=== PATIENT | female | born 1990 | race Hispanic/Latino ===

== ENCOUNTER 2024-12-08 10:02 | Inpatient (IN) | payer BC ==
[2024-12-08] MEDS ORDERED: Morphine 4 MG/ML VIAL ONE (10:17)
[2024-12-08] MEDS ORDERED: Ondansetron PF 4 MG/2 ML Vial ONE ×2 (10:17→11:42)
[2024-12-08 10:27] LABS: Pregnancy Test - Urine (BHCG) Negative (Negative); Pregu Control Background? CLEAR/WHITE (CLR/WHITE); Pregu Control Bar Appear? YES (CONTROL BAR)
[2024-12-08 10:34] LABS: Bacteria/HPF None Seen HPF (None Seen); Bilirubin Negative (Negative); Blood, Urine 3+ (Negative); CAUTI Indications for Culture Dysuria,urgency,freq; Clarity Turbid (Clear); Glucose, Urine (Dipstick) Normal (Negative); Ketone, Urine Negative (Negative); Leukocyte Negative Leu/uL (Negative); Nitrite Negative (Negative); Protein, Urine (Dipstick) 20 mg/dL (Neg-Trace); RBC/HPF 21-50 HPF (0-3); Specific Gravity, Urine 1.015 (1.002-1.036); Squamous Epithelial 0-3 HPF (0-3); Urobilinogen Normal mg/dL (Less than 2); WBC/HPF 0-3 HPF (0-3)
[2024-12-08 10:35] LABS: Urine Culture Reflex No No
[2024-12-08 10:36] LABS: #Basophils 0.08 10x3/uL (0.0-0.2); %Basophils 0.5 % (0.0-1.0); %Eosinophils 1.8 % (0.0-10.0); %Lymphocytes 53.3 % (21.0-51.0); %Monocytes 5.8 % (0.0-10.0); Hematocrit 38.2 % (36.0-47.0); Hemoglobin 13.1 g/dL (12.0-16.0); Mean Corpuscular HGB CONC 34.3 g/dL (32.0-36.0); Mean Corpuscular Hemoglobin 28.9 pg (27.0-31.0); Mean Corpuscular Volume 84.1 fL (78.0-98.0); Mean Platelet Volume 9.4 fL (7.4-10.4); Platelet Count 392 10x3/uL (130-400); RBC Distribution Width 13.1 % (11.5-14.5); Red Blood Cell (RBC) Count 4.54 mill/uL (4.20-5.40)
[2024-12-08 10:54] LABS: ALT (SGPT) 12 U/L (Less than 34); AST (SGOT) 26 U/L (11-34); Albumin 4.3 g/dL (3.1-4.5); Alkaline Phosphatase 58 U/L (40-110); Anion Gap 18 mmol/L (10-20); BUN (Urea Nitrogen) 16 mg/dL (7.0-18.7); Bilirubin, Total 0.6 mg/dL (0.3-1.2); Calc. Creatinine Clearance 0 mL/min (70-130); Calcium 9.7 mg/dL (7.8-10.44); Carbon Dioxide 19 mmol/L (22-29); Chloride 106 mmol/L (98-107); Estimated GFR 95; Globulin 3.6 g/dL (2.4-3.5); Glucose 147 mg/dL (70-105); Lipase 18 U/L (8-78); Potassium 3.2 mmol/L (3.5-5.1); Protein, Total 7.9 g/dL (6.0-8.3); Sodium 140 mmol/L (136-145)
[2024-12-08] MEDS ORDERED: HYDROmorphone 0.5 MG/0.5 ML SYRINGE ONE ×2 (11:08→11:12)
[2024-12-08] MEDS ORDERED: Potassium Chloride 20 MEQ (100 mL) BAG ONE (11:09)
[2024-12-08] MEDS ORDERED: Promethazine HCl 25 MG/ML VIAL ONE (11:09)
[2024-12-08 11:26] LABS: Magnesium 2.2 mg/dL (1.6-2.6)
[2024-12-08] MEDS ORDERED: Rocuronium Bromide 10 MG/ML (10ML VIAL) ONE (11:42)
[2024-12-08] MEDS ORDERED: Lidocaine 2% PF 5 ML VIAL ONE (11:42)
[2024-12-08] MEDS ORDERED: Dexamethasone 20 MG/5 ML VIAL ONE (11:42)
[2024-12-08] MEDS ORDERED: PROPOFOL 20 ML ONE (11:42)
[2024-12-08] MEDS ORDERED: Midazolam HCl 2 mg/2 ml Vial ONE (11:42)
[2024-12-08] MEDS ORDERED: fentaNYL PF 100 MCG/2 ML SYRINGE ONE (11:42)
[2024-12-08] MEDS ORDERED: Ondansetron PF 4 MG/2 ML Vial IVP PRN (11:44)
[2024-12-08] MEDS ORDERED: Ondansetron ODT 4 MG TAB PO PRN (11:44)
[2024-12-08] MEDS ORDERED: Acetaminophen 650 MG Suppository PR PRN (11:44)
[2024-12-08] MEDS ORDERED: Electrolyte Replacement Protocol 1 EACH FS SCH (11:45)
[2024-12-08] MEDS ORDERED: EPINEPHrine 1 MG/ML VIAL ONE (12:16)
[2024-12-08] MEDS ORDERED: Bupivacaine 0.25% HCL 30 ML VIAL ONE (12:16)
[2024-12-08] MEDS ORDERED: CEFAZOLIN 2 GM VIAL ONE (12:39)
[2024-12-08] MEDS ORDERED: Lidocaine 2% 6 ML (Jelly) SYR ONE (12:54)
[2024-12-08] MEDS ORDERED: SUCCINYLCHOLINE/SOD CL,ISO/PF 200 MG/10 ML SYRINGE FS ONE (12:57)
[2024-12-08] MEDS ORDERED: ePHEDrine/0.9% NaCl/PF SYRINGE 50 mg/10 ml ONE (13:06)
[2024-12-08] MEDS ORDERED: Glycopyrrolate 0.2 MG/ML 5 ML SYRINGE ONE (14:30)
[2024-12-08] MEDS ORDERED: SUGAMMADEX SODIUM 200 MG/2 ML VIAL ONE (14:31)
[2024-12-08] MEDS ORDERED: Iopamidol-370 76% 500 ML MDV (1 ML CHARGE) ONE (15:16)
[2024-12-08] MEDS ORDERED: fentaNYL 50 mcg/mL 1 mL Vial ONE (15:23)
[2024-12-08] MEDS: NS 0.9% w/ 40 MEQ KCL 1,000 ML IV SCH (15:33)
[2024-12-08 17:15] VITALS: BMI 31.5
[2024-12-08 17:22] LABS: Lactic Acid 2.61 mmol/L (0.50-2.20)
[2024-12-08] MEDS: Lactated Ringer's 1,000 ML IV SCH (18:43)
[2024-12-08] MEDS: Morphine 2 MG/ML VIAL SLOW IVP PRN (18:44)
[2024-12-08] MEDS: traMADol HCl 50 MG TAB PO PRN (20:27)
[2024-12-09 06:52] LABS: #Basophils Less than 0.03 10x3/uL (0.0-0.2); #Eosinophils Less than 0.03 10x3/uL (0.0-0.7); %Basophils 0.2 % (0.0-1.0); %Eosinophils 0.1 % (0.0-10.0); %Lymphocytes 15.1 % (21.0-51.0); %Monocytes 8.4 % (0.0-10.0); %Neutrophils 75.8 % (42.0-75.0); Hematocrit 35.3 % (36.0-47.0); Hemoglobin 11.7 g/dL (12.0-16.0); Mean Corpuscular HGB CONC 33.1 g/dL (32.0-36.0); Mean Corpuscular Hemoglobin 28.5 pg (27.0-31.0); Mean Corpuscular Volume 85.9 fL (78.0-98.0); Platelet Count 299 10x3/uL (130-400); RBC Distribution Width 13.3 % (11.5-14.5); Red Blood Cell (RBC) Count 4.11 mill/uL (4.20-5.40)
[2024-12-09 07:20] LABS: Anion Gap 12 mmol/L (10-20); BUN (Urea Nitrogen) 8 mg/dL (7.0-18.7); Calc. Creatinine Clearance 158 mL/min (70-130); Calcium 8.3 mg/dL (7.8-10.44); Carbon Dioxide 22 mmol/L (22-29); Chloride 107 mmol/L (98-107); Estimated GFR 123; Glucose 109 mg/dL (70-105); Potassium 4.1 mmol/L (3.5-5.1); Sodium 137 mmol/L (136-145)
[2024-12-09] MEDS: Enoxaparin 30 MG (0.3 mL) SYRINGE SC SCH (21:14)
[2024-12-10 08:42] LABS: #Basophils 0.03 10x3/uL (0.0-0.2); %Basophils 0.3 % (0.0-1.0); %Eosinophils 1.1 % (0.0-10.0); %Lymphocytes 27.6 % (21.0-51.0); %Monocytes 6.4 % (0.0-10.0); %Neutrophils 64.2 % (42.0-75.0); Hematocrit 37.6 % (36.0-47.0); Mean Corpuscular HGB CONC 31.9 g/dL (32.0-36.0); Mean Corpuscular Hemoglobin 28.6 pg (27.0-31.0); Mean Corpuscular Volume 89.5 fL (78.0-98.0); Mean Platelet Volume 9.4 fL (7.4-10.4); Platelet Count 281 10x3/uL (130-400); RBC Distribution Width 13.3 % (11.5-14.5)
[2024-12-10] MEDS: Acetaminophen 325 MG TAB PO PRN (16:41)
[2024-12-11 09:07] VITALS: BP 116/76; TEMP 97.8
== END 2024-12-11 12:05 | disposition home or self-care (01) | DRG 331 ==
LOC: ERS 10:02 → SDC 12:30 → SURG A 16:23
PROVIDERS: ADMIT Student in an Organized Health Care Education/Training Program; ATTEND Student in an Organized Health Care Education/Training Program
PROC: 0DB80ZZ Excision of Small Intestine, Open Approach (ICD-10-PCS; principal; 2024-12-08)
PROC: 0DJD4ZZ Inspection of Lower Intestinal Tract, Percutaneous Endoscopic Approach (ICD-10-PCS; 2024-12-08)
DX: K56.1 Intussusception (principal); Z90.89 Acquired absence of other organs; Z79.899 Other long term (current) drug therapy; Z88.0 Allergy status to penicillin
CPT/HCPCS: 36415; 74177; 80048; 80053; 81001; 81025; 83605; 83690; 83735; 85025; 87040; 88307; 93005; 96374; 96375; A4314; J0171; J0665; J1100; J1171; J1650; J2250; J2270; J2272; J2405; J2550; J2704; J3010; J3480; J7120; Q9967